=== PATIENT | female | born 1990 | race Caucasian/White ===

== ENCOUNTER 2019-05-22 09:12 | Emergency (ER) | payer BC ==
[2019-05-22 09:28] VITALS: BP 132/92
--- NOTE | 2019-05-22 09:50 | UC ---
Back Pain HPI - HPI Summary HPI Summary: Pt presents with c/o worsening left side back pain and left side sciatica over the last 3 days. Pt states that she is unable to feel the urge to urinate and has radiating numbness and weakness down left leg. - History of Current Complaint Chief Complaint: UCBackPain Stated Complaint: BACK PAIN Time Seen by Provider: 05/22/19 09:18 Hx Obtained From: Patient Hx Last Menstrual Period: 04/26/19 ?: No Onset/Duration: Gradual Onset, Lasting Days, Worse Since - onset Timing: Constant Severity Initially: Mild Severity Currently: Severe Pain Intensity: 10 Back Pain: Is Discrete @ - left low back and sciatic, Radiates To - left leg Character: Dull, Aching, Throbbing, Spasmodic, Stiffness Aggravating Factor(s): Movement, Lifting, Bending, Walking Alleviating Factor(s): Nothing Associated Signs And Symptoms: Positive: Swelling - Risk Factors AAA Risk Factors: Negative TAD Risk Factors: Negative Cauda Equina Risk Factors: Perineal Anesthesia Epidural Abscess Risk Factors: Negative - Allergies/Home Medications Allergies/Adverse Reactions: Allergies Allergy/AdvReac Type Severity Reaction Status Date / Time naproxen Allergy Itching Verified 05/22/19 09:28 Penicillins AdvReac Unknown Verified 05/22/19 09:28 Reaction Details PMH/Surg Hx/FS Hx/Imm Hx Previously Healthy: Yes - Surgical History Surgical History: None - Family History Known Family History: Positive: Cardiac Disease - Social History Occupation: Works From/At Home Lives: With Family Alcohol Use: None Substance Use Type: None Smoking Status (MU): Former Smoker Type: Cigarettes Amount Used/How Often: 10 years Length of Time of Smoking/Using Tobacco: 1 ppd Have You Smoked in the Last Year: Yes When Did the Patient Quit Smoking/Using Tobacco: 09/2018 Review of Systems All Other Systems Reviewed And Are Negative: Yes Constitutional: Positive: Negative Skin: Positive: Negative Eyes: Positive: Negative ENT: Positive: Negative Respiratory: Positive: Negative Cardiovascular: Positive: Negative Gastrointestinal: Positive: Negative Genitourinary: Positive: Negative Motor: Positive: Decreased ROM - low back, left leg Neurovascular: Positive: Decreased Sensation - left lower extremity Musculoskeletal: Positive: Arthralgia, Decreased ROM, Myalgia Neurological: Positive: Weakness - left leg, Numbness - left leg Psychological: Positive: Negative Is Patient Immunocompromised?: No Physical Exam Triage Information Reviewed: Yes Appearance: Pain Distress, Thin Vital Signs: Initial Vital Signs Temp 98.8 F 05/22/19 09:22 Pulse 100 05/22/19 09:22 Resp 18 05/22/19 09:22 BP 132/92 05/22/19 09:22 Pulse Ox 100 05/22/19 09:22 Vital Signs Reviewed: Yes Eye Exam: Normal Eyes: Positive: Other: - tearful throughout exam ENT Exam: Normal Dental Exam: Normal Neck exam: Normal Respiratory: Positive: No respiratory distress Musculoskeletal: Positive: Strength Limited @ - left lower leg, ROM Limited @ - left lower leg, and low back Neurological Exam: Other - weakness left lower extremity Psychological Exam: Normal Skin Exam: Normal Back Pain Course/Dx - Course Course Of Treatment: I discussed my concerns of cause of pain and numbness and instructed the patient to go to the closest emergency room for further evaluation and treatment. - Differential Dx/Diagnosis Differential Diagnosis/HQI/PQRI: Cauda Equina Syndrome, Compressive Cord Syndrome, Herniated Disc Provider Diagnosis: Low back pain Discharge ED - Sign-Out/Discharge Documenting (check all that apply): Patient Departure All imaging exams completed and their final reports reviewed: No Studies - Discharge Plan Condition: Stable Disposition: HOME-RECOMMEND TO ED Patient Education Materials: Acute Low Back Pain (ED) Referrals: [facility] [Outside] - If Needed No Primary Care Phys,NOPCP [Primary Care Provider] - Additional Instructions: Please go directly to the closest emergency room. - Billing Disposition and Condition Condition: STABLE Disposition: Home-Recommend to ED - Attestation Statements Provider Attestation: Per institutional requirements, I have reviewed the chart, however, I was not consulted specifically or made aware of this patient by the midlevel provider. I did not personally evaluate, interact with , or disposition this patient.
== END 2019-05-22 09:55 | disposition home health service (06) ==
LOC: UCCORT 09:12
DX: M54.5 Low back pain (principal); Z87.891 Personal history of nicotine dependence
CPT/HCPCS: 99202; G0463

== ENCOUNTER 2019-05-24 10:06 | Emergency (ER) | payer BC ==
--- NOTE | 2019-05-24 10:30 | ED ---
Back Pain - HPI Summary HPI Summary: This pt is a 29 y/o female presenting to [facility] c/o left lower back pain radiating down left leg since 05/19/19. Pt reports 2 days ago she went to Urgent Care in [place] for increased pain but was sent to [facility] that same day. She states [facility] wanted to send her to [place] for an MRI as they didn't have that service that day. Pt declined transfer and was given prednisone and Flexeril with no relief. Pt notes her left lower back pain radiates down to her left knee. She reports numbness and tingling from the left knee down. She also states she has no urge to urinate since 05/19 but is able to void when she goes to the bathroom every few hours. Her pain is aggravated with ambulating and standing. Pt is able to ambulate but with extreme pain in her thigh, described as " weight." Denies numbness in groin. Denies any trauma. Pt has hx of chronic back pain for several years and usually resting for one day resolves her pain. Denies any other PMHx. Denies any surgeries. Allergic to Aleve, Naproxen, and Penicillin. - History of Current Complaint Chief Complaint: EDBackInjuryPain Stated Complaint: PAIN IN LEG PER PT Time Seen by Provider: 05/24/19 10:18 Hx Obtained From: Patient Hx Last Menstrual Period: 04/26/19 Onset/Duration: Lasting Days, Still Present Onset/Duration: Started Days Ago, Atraumatic, Still Present Timing: Lasting Days Back Pain Location: Is Discrete @ - left lower back, Radiates To - left leg Severity Currently: Severe Pain Intensity: 10 Pain Scale Used: 0-10 Numeric Character: Aching Aggravating Symptom(s): Walking, Other - standing Alleviating Symptom(s): Nothing Associated Signs And Symptoms: Positive: Numbness, Tingling. Negative: Fever, Abdominal Pain - Allergies/Home Medications Allergies/Adverse Reactions: Allergies Allergy/AdvReac Type Severity Reaction Status Date / Time naproxen Allergy Itching Verified 05/24/19 10:12 Penicillins AdvReac Unknown Verified 05/24/19 10:12 Reaction Details Home Medications: Home Medications Cyclobenzaprine (NF) [Cyclobenzaprine 5 MG (NF)] 5 mg PO TID PRN 05/24/19 [ History Confirmed 05/24/19] predniSONE TAB* [Deltasone 10 MG TAB*] 10 mg PO DAILY 05/24/19 [History Confirmed 05/24/19] PMH/Surg Hx/FS Hx/Imm Hx Endocrine/Hematology History: Denies: Hx Diabetes Cardiovascular History: Denies: Hx Hypertension - Surgical History Surgical History: None Infectious Disease History: No Infectious Disease History: Denies: History Other Infectious Disease, Traveled Outside the [place] in Last 30 Days - Family History Known Family History: Positive: Cardiac Disease, Hypertension, Diabetes Family History: Cancer - Social History Alcohol Use: Rare Substance Use Type: Reports: None Smoking Status (MU): Former Smoker Type: Cigarettes Amount Used/How Often: 10 years Length of Time of Smoking/Using Tobacco: 1 ppd Have You Smoked in the Last Year: Yes Review of Systems Negative: Fever, Chills Negative: pain Musculoskeletal: Other - POSITIVE: left lower back pain Positive: Paresthesia, Numbness All Other Systems Reviewed And Are Negative: Yes Physical Exam - Summary Physical Exam Summary: Constitutional: Well-developed, Well-nourished, Alert. (-) Distressed Skin: Warm, Dry HENT: Normocephalic; Atraumatic Eyes: Conjunctiva normal Neck: Musculoskeletal ROM normal neck. (-) JVD, (-) Stridor Cardio: Rhythm regular, rate normal, Heart sounds normal; Intact distal pulses; Radial pulses are 2+ and symmetric. (-) Murmur Pulmonary/Chest wall: Effort normal. (-) Respiratory distress, (-) Wheezes, (-) Rales Abd: Soft, (-) tenderness, (-) Distension, (-) Guarding, (-) Rebound Musculoskeletal: (-) Edema. Significant pain with straight leg raise on the left. Limited ROM of the left knee and thigh secondary to pain. Lymph: (-) Cervical adenopathy Neuro: Alert, Oriented x3. Weakness with plantar/dorsiflexion of the left foot. Decreased sensation to the lower back and perianal area. SILT anterior LLE, mild dec sensation posterior L leg in S1 distribution Psych: Mood and affect Normal Triage Information Reviewed: Yes Vital Signs On Initial Exam: Initial Vitals Temp Pulse Resp BP Pulse Ox 98.2 F 93 16 159/90 98 05/24/19 10:07 05/24/19 10:07 05/24/19 10:07 05/24/19 10:07 05/24/19 10:07 Vital Signs Reviewed: Yes Diagnostics - Vital Signs Vital Signs Temp Pulse Resp BP Pulse Ox 05/24/19 10:07 98.2 F 93 16 159/90 98 - Laboratory Result Diagrams: 05/24/19 10:40 05/24/19 10:40 Lab Statement: Any lab studies that have been ordered have been reviewed, and results considered in the medical decision making process. - Additional Comments Diagnostic Additional Comments: Lumbar spine MRI, as read by radiologist IMPRESSION: Large disc extrusion in the left posterior lateral aspect of the disc space at L5-S1 impinging upon the left descending S1 nerve root. Straightening of the normal lordosis. Degenerative disc disease at L5-S1. Thoracic spine MRI, as read by radiologist IMPRESSION: No disc protrusion is noted in the thoracic spine. Dr. Sánchez has reviewed these reports. Re-Evaluation - Re-Evaluation First Eval Re-Evaluation Time: 02:08 Comment: unable to get in touch w NSGY at [facility], will try to get NSGY consult from [place]. Second Eval Change: Improved - Patient feeling better, will plan for outpatient follow up with Dr. Julio and motrin/percocet for pain Back Pain Course/Dx - Course Course Of Treatment: 29 y/o F with hx sciatica/back pain since Friday worsening now w L leg weakness and paresthesias. - PE with L dec dorsiflexion, dec sensation lower back, pain w SLR, dec perianal sensation. Check residual bladder volume, concern for disc herniation vs spinal pathology given neuro symptoms will check MRI T/L. Toradol for pain. - Diagnoses Provider Diagnoses: Lumbar disc herniation - Provider Notifications Discussed Care Of Patient With: Dr. Murphy Time Discussed With Above Provider: 14:14 Instructed by Provider To: Other - Discussed with Dr. Murphy, neurosurgeon from [facility], who reports despite neuro symptoms pt can follow up as an outpatient as symptoms resolve in 6 to 8 weeks. Discharge ED - Sign-Out/Discharge Documenting (check all that apply): Patient Departure - Discharge home Patient Received Moderate/Deep Sedation with Procedure: No - Discharge Plan Condition: Stable Disposition: HOME Prescriptions: oxyCODONE/Acetamin 5/325 MG* [Percocet 5/325 TAB*] 1 tab PO Q6H PRN 3 Days #8 tab MDD 4 PRN Reason: Pain Patient Education Materials: Lumbar Disc Herniation (ED) Forms: *Work Release Referrals: Gilmer Martinez MD [Medical Doctor] - 1 Week (Follow up in 1 week.) Additional Instructions: You were seen in the emergency department for lumbar disc herniation. Your MRI showed a disc protrusion at L5-S1. Please take Motrin 600 mg every 8 hours, Percocet for severe pain, return for inability to use the restroom/accidents, worsening numbness or tingling, or if you're concerned. If any studies were not completed at the time of discharge you will be called with the relevant results. Please follow up with your primary care doctor in next 2-3 days and return to emergency department for worsening or concerning symptoms. - Billing Disposition and Condition Condition: STABLE Disposition: Home - Attestation Statements Document Initiated by Loc: Yes Documenting Scribe: Kim Kenny Provider For Whom Loc is Documenting (Include Credential): Maria Guadalupe Sánchez MD Scribe Attestation: IKim, scribed for Maria Guadalupe Sánchez MD on 05/24/19 at 1621. Scribe Documentation Reviewed: Yes Provider Attestation: The documentation as recorded by the Kim lyn accurately reflects the service I personally performed and the decisions made by Maria Guadalupe shelton MD Status of Scribe Document: Viewed
[2019-05-24] MEDS ORDERED: Ketorolac INJ* 30 MG/ML 1 ML VIAL IV ONE (10:32)
[2019-05-24 10:47] LABS: ABS Basophils 0.1 10^3/ul (0-0.2); ABS Lymphocytes 1.9 10^3/ul (1.0-4.8); ABS Monocytes 0.5 10^3/ul (0-0.8); ABS Neutrophils 8.9 10^3/ul (1.5-7.7); Eosinophil % 0.3 %; Hematocrit 42 % (35-47); Hemoglobin 14.5 g/dL (12.0-16.0); Lymphocyte % 16.6 %; Mean Corpuscular HGB Conc 35 g/dL (31-36); Mean Corpuscular Hemoglobin 31 pg (27-31); Mean Corpuscular Volume 90 fL (80-97); Mean Platelet Volume 7.6 fL (7.4-10.4); Platelet Count 283 10^3/uL (150-450); Red Cell Distribution Width 14 % (10-15); White Blood Count 11.5 10^3/uL (3.5-10.8)
[2019-05-24 11:06] LABS: ALT 5 U/L (7-52); AST 12 U/L (13-39); Albumin 4.2 g/dL (3.2-5.2); Albumin/Globulin Ratio 1.4 (1-3); Alkaline Phosphatase 49 U/L (34-104); Anion Gap 5 mmol/L (2-11); BUN/Creatinine Ratio 12.5 (8-20); Blood Urea Nitrogen 10 mg/dL (6-24); C Reactive Protein < 1.00 mg/L (<8.01); CO2 Carbon Dioxide 26 mmol/L (22-32); Calcium 9.6 mg/dL (8.6-10.3); Chloride 105 mmol/L (101-111); EGFR African American 101.2 (>60); EGFR Non-African American 83.7 (>60); Glucose 99 mg/dL (70-100); Potassium 3.6 mmol/L (3.5-5.0); Sodium 136 mmol/L (135-145); Total Protein 7.2 g/dL (6.4-8.9)
[2019-05-24 11:13] LABS: HCG Pregnancy < 0.60 mIU/mL
[2019-05-24 11:52] LABS: Erythrocyte Sed Rate 21 mm/Hr (0-19)
[2019-05-24 15:20] VITALS: BP 145/95
== END 2019-05-24 15:16 | disposition home or self-care (01) ==
LOC: ED 10:06
DX: M51.26 Other intervertebral disc displacement, lumbar region (principal); M51.37 Other intervertebral disc degeneration, lumbosacral region; Z87.891 Personal history of nicotine dependence; Z79.899 Other long term (current) drug therapy; Z88.6 Allergy status to analgesic agent; Z88.0 Allergy status to penicillin
CPT/HCPCS: 36415; 72146; 72148; 80053; 84702; 85025; 85652; 86140; 96374; 99282; J1885